=== PATIENT | male | born 1950 | race Hispanic/Latino ===

== ENCOUNTER 2017-06-13 07:16 | Day surgery (SDC) | payer BC ==
[2017-06-10 16:40] LABS: BASOPHILS % (AUTO) 0.9 % (0.0-5.0); EOSINOPHILS % (AUTO) 3.6 % (0.0-8.0); LYMPHOCYTES % (AUTO) 22.9 % (21.0-51.0); MEAN CORPUSCULAR HEMOGLOBIN 31.8 pg (27.0-33.0); MEAN CORPUSCULAR HGB CONC 34.1 g/dL (32.0-36.0); MEAN CORPUSCULAR VOLUME 93.4 fL (79-99); MONOCYTES % (AUTO) 10.8 % (3.0-13.0); NEUTROPHILS % (AUTO) 61.8 % (40.0-77.0); PLATELET COUNT (AUTO) 257 K/uL (130-400); RED BLOOD CELL COUNT(AUTO) 4.93 MIL/uL (4.50-6.20); RED CELL DISTRIBUTION WIDTH 13.2 % (11.0-15.5); WHITE BLOOD COUNT (AUTO) 7.2 K/uL (4.8-10.8)
[2017-06-10 16:46] VITALS: BP 139/69
[2017-06-10 16:48] LABS: INR 1.02 (0.85-1.15); PARTIAL THROMBOPLASTIN TIME 28.8 SEC (26.3-35.5); PROTHROMBIN TIME 10.7 SEC (9.6-11.6)
[2017-06-10 16:55] LABS: CREATININE 0.7 mg/dL (0.5-1.5)
[~2017-06-13] VITALS: Ht 170.2 cm; Wt 86.6 kg
[~2017-06-13 07:16] MED LIST: ANDROGEL TP; ASPI-891 PO; PROP40TA7 PO; ROSU40 PO; SODIUM CHLORIDE 0.9% 1000ML 1,000 ML IV SCH; TAMS-1 PO; VALS40TA4 PO
[2017-06-13 07:25] VITALS: BP 134/71
[2017-06-13] MEDS ORDERED: SODIUM CHLORIDE 0.9% 500ML 500 ML IV ONE (08:30)
[2017-06-13] MEDS ORDERED: BENZOCAINE 20% 57 GM SPRAY ONE (08:55)
[2017-06-13] MEDS ORDERED: FENTANYL CITRATE PF 50 MCG/1 ML 2ML VIAL ONE (09:55)
[2017-06-13] MEDS ORDERED: MIDAZOLAM HCL 1 MG/ML 2ML VIAL ONE ×2 (09:56→10:11)
== END 2017-06-13 11:55 | disposition home or self-care (01) ==
LOC: DAH 07:16
PROVIDERS: ATTEND Internal Medicine Cardiovascular Disease
DX: I63.9 Cerebral infarction, unspecified (principal); I10 Essential (primary) hypertension; E78.5 Hyperlipidemia, unspecified; G47.33 Obstructive sleep apnea (adult) (pediatric); Z99.89 Dependence on other enabling machines and devices; Z79.82 Long term (current) use of aspirin; Z98.890 Other specified postprocedural states
CPT/HCPCS: 36415; 80048; 85025; 85610; 85730; 93312; 93325; A4606; J2250 ×2; J3010; J7040

== ENCOUNTER 2018-11-22 08:46 | Day surgery (SDC) | payer BC ==
[2018-11-20 09:01] VITALS: BP 142/77
[2018-11-20 09:10] LABS: BASOPHILS % (AUTO) 0.4 % (0.0-5.0); EOSINOPHILS % (AUTO) 4.5 % (0.0-8.0); HEMATOCRIT 47.5 % (42-54); LYMPHOCYTES % (AUTO) 9.7 % (21.0-51.0); MEAN CORPUSCULAR HEMOGLOBIN 31.2 pg (27.0-33.0); MEAN CORPUSCULAR HGB CONC 33.3 g/dL (32.0-36.0); MEAN CORPUSCULAR VOLUME 93.9 fL (79-99); MONOCYTES % (AUTO) 10.6 % (3.0-13.0); NEUTROPHILS % (AUTO) 74.8 % (40.0-77.0); NUCLEATED RED BLOOD CELLS 0.1 % (0.0-0.19); PLATELET COUNT (AUTO) 136 K/uL (130-400); RED BLOOD CELL COUNT(AUTO) 5.06 MIL/uL (4.50-6.20); RED CELL DISTRIBUTION WIDTH 13.5 % (11.0-15.5); WHITE BLOOD COUNT (AUTO) 6.5 K/uL (4.8-10.8)
[2018-11-20 09:21] LABS: CREATININE 0.8 mg/dL (0.5-1.5); POTASSIUM 4.4 mmol/L (3.5-5.1)
[2018-11-20 09:23] LABS: INR 0.99 (0.85-1.15); PARTIAL THROMBOPLASTIN TIME 36.7 SEC (26.3-35.5); PROTHROMBIN TIME 10.4 SEC (9.6-11.6)
[~2018-11-22] VITALS: Ht 170.2 cm; Wt 90.0 kg
[2018-11-22] VITALS (13 sets, daily range): BP systolic 95–123; BP diastolic 60–86
[~2018-11-22 08:46] MED LIST changes: +APIX5TAB PO; -ASPI-891 PO; +LOSA50TA64 PO; +PROP20TA96 PO; +PROP325C PO; -PROP40TA7 PO; +ROSU10TA22 PO; -ROSU40 PO; -SODIUM CHLORIDE 0.9% 1000ML 1,000 ML IV SCH; -VALS40TA4 PO
--- NOTE | 2018-11-22 09:56 | NUR ---
CARDIOVERSION CARDIOVERSION WITH ANESTHESIA PERFORMED AT BEDSIDE BY DR. MONTANO.TIME OUT DONE AT 0956. START TIME AT 1001. SHOCK DELIVERED AT 200 JOULES AT 1003. PROCEDURE FINISH TIME OF 1004. PT CONVERTED TO SINUS. RECOVERY STARTED AT 1004. PT TOLERATED WELL WITH NO DISCOMFORTS. DR. MONTANO SPOKE TO FAMILY. PT WILL BE DISCHARGED WHEN FULLY AWAKE AND STABLE.
[2018-11-22] MEDS ORDERED: SODIUM CHLORIDE 0.9% 1000ML 1,000 ML IV ONE (14:01)
== END 2018-11-22 11:11 | disposition home or self-care (01) ==
LOC: DAH 08:46
PROVIDERS: ATTEND Internal Medicine Cardiovascular Disease
DX: I48.1 Persistent atrial fibrillation (principal); I10 Essential (primary) hypertension; E78.5 Hyperlipidemia, unspecified; G47.33 Obstructive sleep apnea (adult) (pediatric); N40.0 Benign prostatic hyperplasia without lower urinary tract symptoms; Z79.01 Long term (current) use of anticoagulants; Z79.899 Other long term (current) drug therapy; Z72.89 Other problems related to lifestyle; Z98.890 Other specified postprocedural states; Z86.73 Personal history of transient ischemic attack (TIA), and cerebral infarction without residual deficits
CPT/HCPCS: 36415; 80048; 85025; 85610; 85730; 92960; 93005 ×2; A4606; J7030; 99156

== ENCOUNTER 2020-06-19 06:44 | Day surgery (SDC) | payer MEDICARE, BC ==
[2020-06-16 10:25] VITALS: BP 127/79
[2020-06-16 13:21] LABS: BASOPHILS % (AUTO) 1.2 % (0.0-5.0); EOSINOPHILS % (AUTO) 10.7 % (0.0-8.0); HEMATOCRIT 38.6 % (42-54); LYMPHOCYTES % (AUTO) 28.8 % (21.0-51.0); MEAN CORPUSCULAR HEMOGLOBIN 23.1 pg (27.0-33.0); MEAN CORPUSCULAR HGB CONC 30.6 g/dL (32.0-36.0); MEAN CORPUSCULAR VOLUME 75.5 fL (79-99); MONOCYTES % (AUTO) 14.3 % (3.0-13.0); NEUTROPHILS % (AUTO) 44.8 % (40.0-77.0); PLATELET COUNT (AUTO) 192 K/uL (130-400); RED BLOOD CELL COUNT(AUTO) 5.11 MIL/uL (4.50-6.20); RED CELL DISTRIBUTION WIDTH 22.7 % (11.0-15.5); WHITE BLOOD COUNT (AUTO) 4.1 K/uL (4.8-10.8)
[2020-06-16 13:39] LABS: CREATININE 0.7 mg/dL (0.5-1.5); POTASSIUM 4.6 mmol/L (3.5-5.1)
[~2020-06-19] VITALS: Ht 170.2 cm; Wt 80.7 kg
[2020-06-19] VITALS (14 sets, daily range): BP systolic 79–117; BP diastolic 47–71
[~2020-06-19 06:44] MED LIST changes: +ANDROGEL; -ANDROGEL TP; -LOSA50TA64 PO; -PROP20TA96 PO; -PROP325C PO; +PROP40TA7 PO; +PROP425C PO; -ROSU10TA22 PO; +ROSU20TA23 PO; -TAMS-1 PO
[2020-06-19] MEDS ORDERED: PROP425C6 PO (07:29)
[2020-06-19] MEDS ORDERED: 0.9% NACL 500ML IV.SOLN 500 ML IV ONE (08:09)
[2020-06-19] MEDS ORDERED: PROPOFOL 10 MG/ML 20ML VIAL IV ONE (08:22)
[2020-06-19] MEDS ORDERED: SUCCINYLCHOLINE 200MG/10ML SYR ONE (08:23)
[2020-06-19] MEDS ORDERED: PHENYLEPHRINE HCL 10 MG/ML 1ML VIAL IV ONE (08:23)
[2020-09-10] MEDS ORDERED: AMIO100T4 PO (10:32)
[2020-09-10] MEDS ORDERED: PROP40TA7 PO (10:32)
== END 2020-06-19 09:35 | disposition home or self-care (01) ==
LOC: DAH 06:44
PROVIDERS: ATTEND Internal Medicine Cardiovascular Disease
DX: I48.0 Paroxysmal atrial fibrillation (principal); I49.5 Sick sinus syndrome; Z86.73 Personal history of transient ischemic attack (TIA), and cerebral infarction without residual deficits; G25.0 Essential tremor; I10 Essential (primary) hypertension; Z79.899 Other long term (current) drug therapy; Z79.01 Long term (current) use of anticoagulants; Z20.828 Contact with and (suspected) exposure to other viral communicable diseases
CPT/HCPCS: 36415; 80048; 85025; 92960; 93005 ×2; A4215; A4216; A4221; A4222; A4223 ×3; A4606; A4663; C9803; J0330; J2370; J2704; J7040; U0003; 99156; 99157

== ENCOUNTER 2020-09-11 05:56 | Day surgery (SDC) | payer OTHER, MEDICARE ==
[2020-09-09 15:10] LABS: BASOPHILS % (AUTO) 1.2 % (0.0-5.0); EOSINOPHILS % (AUTO) 8.3 % (0.0-8.0); HEMATOCRIT 38.6 % (42-54); LYMPHOCYTES % (AUTO) 23.4 % (21.0-51.0); MEAN CORPUSCULAR HEMOGLOBIN 25.2 pg (27.0-33.0); MEAN CORPUSCULAR HGB CONC 31.9 g/dL (32.0-36.0); MEAN CORPUSCULAR VOLUME 78.9 fL (79-99); MONOCYTES % (AUTO) 12.1 % (3.0-13.0); NEUTROPHILS % (AUTO) 54.8 % (40.0-77.0); PLATELET COUNT (AUTO) 168 K/uL (130-400); RED BLOOD CELL COUNT(AUTO) 4.89 MIL/uL (4.50-6.20); RED CELL DISTRIBUTION WIDTH 19.1 % (11.0-15.5); WHITE BLOOD COUNT (AUTO) 5.1 K/uL (4.8-10.8)
[2020-09-09 15:19] LABS: CREATININE 0.8 mg/dL (0.5-1.5); POTASSIUM 3.9 mmol/L (3.5-5.1)
[2020-09-09 15:23] LABS: INR 0.94 (0.85-1.15); PROTHROMBIN TIME 10.3 SEC (9.6-11.6)
[2020-09-09 15:24] LABS: PARTIAL THROMBOPLASTIN TIME 26.8 SEC (26.3-35.5)
[2020-09-10 09:33] VITALS: BP 137/63
[2020-09-11] VITALS (13 sets, daily range): BP systolic 121–149; BP diastolic 59–93
[~2020-09-11] VITALS: Ht 170.2 cm; Wt 83.6 kg
[~2020-09-11 05:56] MED LIST changes: +AMIO100T4 PO; -ANDROGEL; -PROP425C PO; +SODIUM CHLORIDE 0.9% 500ML 500 ML IV SCH
[2020-09-11] MEDS ORDERED: BUPIVACAINE/PF 0.25% 30ML VIAL IJ ONE (07:18)
[2020-09-11] MEDS ORDERED: LIDOCAINE HCL 1% MDV 50ML VIAL ONE (07:19)
[2020-09-11] MEDS ORDERED: CEFAZOLIN SODIUM 1 GM VIAL ONE ×2 (07:19→09:40)
[2020-09-11] MEDS ORDERED: SODIUM CHLORIDE 0.9% 1000ML 1,000 ML IV ONE (07:23)
[2020-09-11] MEDS ORDERED: FENTANYL CITRATE PF 50 MCG/1 ML 2ML VIAL ONE ×2 (07:33→08:31)
[2020-09-11] MEDS ORDERED: MIDAZOLAM HCL 1 MG/ML 2ML VIAL ONE ×6 (07:33→08:55)
[2020-09-11] MEDS ORDERED: OCTYL 2-CYANOACRYLATE 1 EACH TP ONE ×2 (08:53→09:06)
[2020-09-11] MEDS ORDERED: ONDANSETRON HCL 4 MG/2 ML VIAL IV PRN (09:30)
[2020-09-11] MEDS ORDERED: ACETAMINOPHEN-CODEINE 300/30MG TAB PO PRN ×2 (09:30)
[2020-09-11] MEDS ORDERED: SODIUM CHLORIDE 0.9% 1000ML 1,000 ML IV SCH (09:45)
[2020-09-11] MEDS ORDERED: CEFAZOLIN SODIUM 1 GM VIAL IVP ONE (15:30)
== END 2020-09-11 16:15 | disposition home or self-care (01) ==
LOC: DAH 05:56
PROVIDERS: ATTEND Internal Medicine Cardiovascular Disease
DX: I49.5 Sick sinus syndrome (principal); Z45.09 Encounter for adjustment and management of other cardiac device; I48.0 Paroxysmal atrial fibrillation; I44.30 Unspecified atrioventricular block; I10 Essential (primary) hypertension; E78.5 Hyperlipidemia, unspecified; G47.33 Obstructive sleep apnea (adult) (pediatric); Z98.890 Other specified postprocedural states; Z90.49 Acquired absence of other specified parts of digestive tract; Z90.79 Acquired absence of other genital organ(s); Z92.21 Personal history of antineoplastic chemotherapy; Z79.899 Other long term (current) drug therapy; Z79.01 Long term (current) use of anticoagulants
CPT/HCPCS: 33208; 33286; 36415; 71045; 80048; 85025; 85610; 85730; 93005; A4215; A4221; A4222; A4223 ×3; A4606; A4663; C1785; C1894; C1898 ×2; J0690 ×2; J2250 ×6; J3010 ×2; J3490 ×2; J7030; 99156; 99157